=== PATIENT | female | born 1955 | race Caucasian/White ===

== ENCOUNTER 2017-06-30 09:30 | Inpatient (IN) | payer BC, OTHER ==
[2017-07-05] MEDS ORDERED: Levofloxacin 500 mg/D5W 100 ml Premix Bag ONE (06:23)
[2017-07-05] MEDS ORDERED: Clindamycin/D5W 900 mg/50 ml Premix Bag ONE (06:23)
[2017-07-05] MEDS ORDERED: Midazolam HCl 2 mg/2 ml Vial ONE ×2 (06:26→06:44)
[2017-07-05] MEDS ORDERED: Lidocaine 0.5%/Epinephrine 1:200,000 50 ml Vial ONE (06:33)
[2017-07-05] MEDS ORDERED: Sodium Chloride 0.9% 20 ML ONE (06:33)
[2017-07-05] MEDS ORDERED: Bacitracin Zinc Ointment 30 gm TUBE ONE (06:34)
[2017-07-05] MEDS ORDERED: Thrombin 5000 UNITS/5 ML VIAL ONE ×2 (06:34→09:10)
[2017-07-05] MEDS ORDERED: Propofol 1,000 MG/100 ML VIAL IV ONE (06:44)
[2017-07-05] MEDS ORDERED: Fentanyl 100 MCG/2 ML VIAL ONE ×2 (06:46→09:12)
[2017-07-05] MEDS ORDERED: SUGAMMADEX SODIUM 500 MG/5 ML VIAL ONE (06:48)
--- NOTE | 2017-07-05 06:56 | HP ---
REASON FOR ADMISSION: Surgery for trigeminal neuralgia. HISTORY OF PRESENT ILLNESS: Ms. Burnette is a 61-year-old woman with a long history of right-sided V3 trigeminal neuralgia. Her lancinating intermittent face pain has been present at least since 2014. She has had antiepileptic drug treatment including Tegretol [facility] the [facility]. When the pain is there, it is the most excruciating pain she has ever experi enced and she is here for surgical treatment thereof. PAST MEDICAL HISTORY: Hypertension, knee pain, right-sided trigeminal neuralgia. PAST SURGICAL HISTORY: Knee surgery, hysterectomy, tubal ligation, section and cholecystect neelam. MEDICATIONS: Carbamazepine, Humira (held the last 6 weeks), folic acid, amlodipine, omeprazole, meto prolol. ALLERGIES: PENICILLIN, SULFA and perhaps VANCOMYCIN, although she is unsure on that last allergy. FAMILY HISTORY: Father is alive. Mother is alive, none of whom have trigeminal neuralgia. SOCIAL HISTORY: Ms. Burnette is a former smoker. She is . She has 1 child. REVIEW OF SYSTEMS: Otherwise negative. PHYSICAL EXAMINATION: GENERAL: Ms. Burnette's cranial nerves are intact. Her visual qiu are full to confrontation. Extr aocular muscles are moving the eyes in all directions, primary gaze without nystagmus. The face is s ensate symmetrically. She had some triggers on the right V3 distribution. Muscles of mastication ar e strong. Hearing is normal to finger rub bilaterally. Tongue protrudes in midline and moves from s allen to side without weakness. Shoulder shrug and head turn are strong. Cerebellar exam shows smooth alternating rapid motions. There is no truncal ataxia. The motor shows no pronator drift. There i s no neglect. There is no lateralizing sensory deficit. The toes are downgoing. ASSESSMENT: Right-sided V3 trigeminal neuralgia. PLAN: Microvascular decompression right trigeminal nerve.
[2017-07-05] MEDS ORDERED: HYDROmorphone 2 MG/ML VIAL SLOW IVP PRN (09:46)
[2017-07-05] MEDS ORDERED: Promethazine HCl 25 MG/ML VIAL IM PRN ×2 (09:46→10:51)
[2017-07-05] MEDS ORDERED: Ondansetron HCl/PF 4 MG/2 ML Vial IVP PRN ×2 (09:46→10:51)
[2017-07-05] MEDS ORDERED: Promethazine HCl 25 MG/ML VIAL SLOW IVP PRN (09:46)
[2017-07-05] MEDS ORDERED: Morphine Sulfate 2 MG/ML SYRINGE SLOW IVP PRN (09:46)
[2017-07-05] MEDS ORDERED: HYDROmorphone 0.5 MG/0.5 ML SYRINGE ONE (10:37)
[2017-07-05] MEDS ORDERED: Promethazine HCl 12.5 MG SUPP PR PRN (10:51)
[2017-07-05] MEDS ORDERED: Labetalol HCl 100 MG/20 ML VIAL SLOW IVP PRN (10:51)
[2017-07-05] MEDS ORDERED: Morphine 4 MG/ML VIAL SLOW IVP PRN (10:51)
[2017-07-05] MEDS ORDERED: diphenhydrAMINE 50 MG CAP PO PRN (10:51)
[2017-07-05] MEDS ORDERED: Promethazine 25 MG TAB PO PRN (10:51)
[2017-07-05] MEDS ORDERED: diphenhydrAMINE 50 MG/ML VIAL IVP PRN (10:51)
[2017-07-05] MEDS ORDERED: hydrALAZINE 20 MG/ML VIAL SLOW IVP PRN (10:51)
[2017-07-05] MEDS ORDERED: PHENYLEPHRINE-NS 100 MCG/ML 10 ML SYRINGE ONE (10:58)
[2017-07-05] MEDS ORDERED: Ondansetron HCl/PF 4 MG/2 ML Vial ONE (10:58)
[2017-07-05] MEDS ORDERED: Esmolol 100 MG/10 ML VIAL ONE (10:58)
[2017-07-05] MEDS ORDERED: Glycopyrrolate 0.2 MG/ML 5 ML SYRINGE ONE (10:58)
[2017-07-05] MEDS ORDERED: PROPOFOL 200 MG/20 ML VIAL ONE (10:58)
[2017-07-05] MEDS ORDERED: Succinylcholine Chloride 20 MG/ML 10 ml SYRINGE FS ONE (10:58)
[2017-07-05] MEDS ORDERED: Lidocaine 1% PF 5 ML VIAL ONE (10:58)
--- NOTE | 2017-07-05 12:48 | OP ---
DATE OF PROCEDURE: 07/05/2017 SURGEON: Andie Hollins M.D. INSTRUCTOR OF EDUCATION: RADHA Oneal. PREOPERATIVE INDICATION: Treat pain. PREOPERATIVE DIAGNOSIS: Right-sided V3 trigeminal neuralgia, refractory to medical therapy. POSTOPERATIVE DIAGNOSIS: Right-sided V3 trigeminal neuralgia, refractory to medical therapy. OPERATIVE PROCEDURE: Right-sided retrosigmoid suboccipital craniotomy and microvascular decompressio n of cranial nerve 5. PREOPERATIVE MEDICATION: Levaquin 500 mg IV, clindamycin 900 mg IV. DRAIN NUMBER: Zero. DRAIN TYPE: None. OPERATIVE DICTATION: The patient was brought to the operating room. General endotracheal anesthesia was induced. The patient was positioned in the left lateral decubitus position on the beanbag and t he head immobilized in De Lancey ric head greenskeeper and the De Lancey attachment for the operating tabl e. The right shoulder was taped down, the right-sided probes for monitoring 5, 7 and 8 were placed a nd neuro monitoring was done throughout the entire case. We removed hair from behind the ear on the right side with electric clippers. We planned a curvilinear incision just at the back border of the mastoid and infused local anesthetic under our planned incision. The scalp was sterilely prepped and draped and we opened with a 10 blade knife. We controlled bleeding with bipolar and monopolar caute ry. We dissected down to the periosteal layer with monopolar cautery. We folded a small curvilinear flap forward and held it out of the way with 4-0 silk pop off sutures. We then brought a high-speed drill into the field and drilled a bur hole near the transverse sigmoid junction. We waxed the edge s of the bur hole and then using high speed drill and Kerrison rongeurs, we fashioned a suboccipital craniotomy measuring about 2.5 cm in craniocaudal direction and 2 cm in anterior, posterior direction . We visualized the transverse sigmoid junction. A small emissary vein and the mastoid needed to be controlled and a pledgetted Gelfoam applied. We then opened the dura in a curvilinear fashion and b rought the operating microscope in the field. Under microscopic magnification using microsurgical te chniques, we dissected over the superior lateral portion of the cerebellum. We released the arachnoi d and CSF emanated. There is no retractor needed during the operation. We cut a latex-free glove so that we had a rubber pledget the size of one-half by 3 lisa and this was placed over the superolate ral edge of the cerebellum. We then advanced the lisa into the cerebellopontine angle. We could vi sualize from the 4th to the 8th cranial nerve. We stimulated the seventh cranial nerve to reassure o urselves that we had identified each correctly and then dissected arachnoid from around the fifth craps manager nial nerve. A large superior petrosal sinus was preserved by working under it and a vascular loop of the superior cerebellar artery was draped over the root entry zone of the 5th cranial nerve. The 5t h cranial nerve was discolored under the vascular loops. There were actually x3 vessels. There were three branches, they were all draped over that root entry zone. With the multiple pledgets of Teflo n we buttressed the vessels off of the root entry zone of the nerve, there was no further contact, th e Erik was being held in place and even when we irrigated did not move. We felt the padding was ad equate. We inspected the other cranial nerves, all the monitoring was stable throughout the case. W e gently filled the posterior fossa with the irrigation to ensure the Erik would stay in place and we began closure. We had to harvest a small piece of periosteum to close our dura and the dura was c losed in interrupted fashion. We reinforced our closure with DuraSeal tissue sealant and then repair ed methyl methacrylate. Once the methylmethacrylate was the appropriate density we filled the cranio lizeth defect and waited until it solidified. We closed the scalp wound in anatomic layers. We applie d a sterile dressing. This was a clean case and no contamination.
[2017-07-05] MEDS: Clindamycin/D5W 900 MG in Premix Bag 1 BAG IVPB SCH ×3 (13:56→23:59)
[2017-07-05] MEDS: Sodium Chloride 0.9% 1,000 ML IV SCH (14:05)
[2017-07-05] MEDS: Morphine 4 MG/ML VIAL SLOW IVP PRN ×2 (17:36→20:12)
--- NOTE | 2017-07-05 18:39 | CON ---
DATE OF CONSULTATION: 07/05/2017 SERVICE: Pulmonary Medicine. REASON FOR CONSULTATION: ICU patient. HISTORY OF PRESENT ILLNESS: The patient is a 61-year-old white female with past medical history significant for 4 years of right-sided face pain. Ultimately, she was identified as having trigeminal neuralgia in the V3 distribution. Medical therapy was attempted, but this was not effective. Ultimately, she presented for a right-sided retrosigmoid occipital craniotomy and microvascular decompression of cranial nerve V. She is postoperative day # 0 from this procedure. She presented to the hospital in usual state of health prior to that. Other than the face pain, she has no complaints of fevers, chills, nausea, vomiting or chest discomfort. She does have rheumatoid arthritis and is on Humira. Her last dose was over 5 weeks ago. PAST MEDICAL HISTORY: 1. Hypertension. 2. Rheumatoid arthritis. 3. Gastroesophageal reflux disease. 4. Right-sided trigeminal neuralgia. PAST SURGICAL HISTORY: 1. Hysterectomy. 2. Tubal ligation. 3. section. 4. Cholecystectomy. 5. Knee surgery. 6. Right-sided retrosigmoid suboccipital craniotomy and microvascular decompression of cranial nerve V. ALLERGIES: PENICILLIN, SULFA, VANCOMYCIN. MEDICATIONS: List of her inpatient medications was reviewed. No specific updates were made at this time. FAMILY HISTORY: Noncontributory. SOCIAL HISTORY: She has a history of smoking. She quit remotely. She has got a greater than [id number] history. She denies any alcohol or illicit drugs. She is and has a child. REVIEW OF SYSTEMS: General, head, ears, eyes, nose, throat, cardiovascular, respiratory, GI, , musculoskeletal, neurologic and skin is negative except as mentioned in the HPI. PHYSICAL EXAMINATION: VITAL SIGNS: Afebrile, pulse 54, blood pressure 137/67, respirations 14, saturation 99% on 2 liters nasal cannula. GENERAL: The patient is awake and alert. She is in no apparent distress. LUNGS: Excellent air entry without prolonged expiratory phase, wheezing, rhonchi, or crackles present. HEART: Normal rate, regular. ABDOMEN: Soft, nontender, nondistended. Bowel sounds are positive. MUSCULOSKELETAL: No cyanosis or clubbing. There is no pitting in the bilateral lower extremities. NEUROLOGIC: Grossly nonfocal. She moves all four extremities. She demonstrates good strength which is symmetric throughout. Her cranial nerves are intact. LABORATORY DATA: CBC was recently unremarkable. INR 1.0. ASSESSMENT: 1. Trigeminal neuralgia, status post decompression surgery, postop day #0. 2. Hypertension. 3. Gastroesophageal reflux disease. PLAN: We will put the patient's amlodipine and metoprolol back on board. We also give her home omeprazole. We will give her some p.r.n. blood pressure medications if necessary. Pulmonary Critical Care will continue to follow while she remains in this location. 70 minutes have been devoted to this patient in various activities. I personally reviewed all imaging studies and laboratory data noted within this document. For fifty percent of this time, I was interacting with the patient at the bedside or coordinating care with the care team. For the remainder of the time I was immediately available to the patient in the hospital unit. JAMES
[2017-07-05 19:54] VITALS: BMI 31.7
[2017-07-05 20:23] VITALS: BP 134/69
[2017-07-05] MEDS ORDERED: Acetaminophen 1,000 MG in Premix Bag 1 BAG IVPB PRN (20:44)
[2017-07-05] MEDS: Ibuprofen 600 MG TAB PO PRN (23:58)
[2017-07-06] MEDS: Sodium Chloride 0.9% 1,000 ML IV SCH (04:05)
[2017-07-06] MEDS: Ibuprofen 600 MG TAB PO PRN (05:07)
[2017-07-06 07:59] VITALS: TEMP 97.9
[2017-07-06] MEDS ORDERED: Pantoprazole 40 MG VIAL IVP SCH (09:00)
--- NOTE | 2017-07-06 10:07 | PRG ---
DATE OF SERVICE: 07/06/2017 SERVICE: Pulmonary Medicine. INTERVAL HISTORY: The patient is doing great from a respiratory standpoint. She denies any current headache. Otherwise, there has been no interval change to her condition. She is being considered fo r transition home today, which is perfectly reasonable. There were no overnight events. PHYSICAL EXAMINATION: VITAL SIGNS: Afebrile, pulse 69, blood pressure 125/56, respirations 20, saturation 98% on room air. GENERAL: The patient is awake, alert, no apparent distress. LUNGS: Excellent air entry without prolonged expiratory phase, wheezing, rhonchi or crackles. HEART: Normal rate, regular. ABDOMEN: Soft, nontender, nondistended. Bowel sounds are positive. MUSCULOSKELETAL: No cyanosis or clubbing. No pitting in the bilateral lower extremities. NEUROLOGIC: Grossly nonfocal. ASSESSMENT: 1. Trigeminal neuralgia, status post decompression surgery, postop day #1. 2. Hypertension. DISCUSSION AND PLAN: The patient is stable for transition out of the hospital. She has no further r equirements for inpatient Pulmonary or Critical Care opinion. As such, when she leaves the ICU, we w ill sign off.
== END 2017-07-06 10:00 | disposition home or self-care (01) | DRG 27 ==
LOC: SURG A 07-05 05:28 → CCU 07-05 12:32
PROVIDERS: ADMIT Neurological Surgery; ATTEND Neurological Surgery
PROC: 00NK0ZZ Release Trigeminal Nerve, Open Approach (ICD-10-PCS; principal; 2017-07-05)
DX: G50.0 Trigeminal neuralgia (principal); I10 Essential (primary) hypertension; M06.9 Rheumatoid arthritis, unspecified; K21.9 Gastro-esophageal reflux disease without esophagitis; Z87.891 Personal history of nicotine dependence
CPT/HCPCS: A4216; C1713; J0131; J0360; J1170; J1956; J2001; J2250; J2270; J2405; J2704; J3010; J3490

== ENCOUNTER 2017-06-30 10:04 | Outpatient (CLI) | payer BC ==
[2017-06-30 11:56] LABS: PTT 23.6 SEC (22.9-36.1); Prothrombin Time 13.2 SEC (12.0-14.7)
[2017-06-30 12:03] LABS: Hemoglobin 13.6 g/dL (12.0-16.0); Mean Corpuscular HGB CONC 34.7 g/dL (32.0-36.0); Mean Corpuscular Hemoglobin 31.7 pg (27.0-31.0); Mean Corpuscular Volume 91.6 fl (81.0-99.0); Mean Platelet Volume 6.5 fL (7.4-10.4); Platelet Count 334 thou/uL (130-400); RBC Distribution Width 11.2 % (11.5-14.5); Red Blood Cell (RBC) Count 4.29 mill/uL (4.20-5.40); White Blood Cell (WBC) Count 7.3 thou/uL (4.8-10.8)
== END 2017-06-30 10:05 | disposition home or self-care (01) ==
LOC: LABBT 10:04
PROVIDERS: ATTEND Neurological Surgery
DX: Z01.812 Encounter for preprocedural laboratory examination (principal); G50.0 Trigeminal neuralgia; Z88.0 Allergy status to penicillin; Z88.2 Allergy status to sulfonamides
CPT/HCPCS: 85027; 85610; 85730; 87081